=== PATIENT | female | born 1965 | race Caucasian/White ===

== ENCOUNTER 2018-05-21 06:13 | Inpatient (IN) ==
[2018-05-21] MEDS ORDERED: Ringers Solution, Lactated 1,000 ML IVC SCH ×2 (06:30→13:24)
[2018-05-21] MEDS ORDERED: Albuterol 2.5 MG/3 ML NEBULIZER IH ONE (06:30)
[2018-05-21] MEDS ORDERED: CeFAZolin Syr 2,000MG/20 ML 2,000 MG/20 ML SYRINGE IVPB ONE (06:30)
[2018-05-21] MEDS ORDERED: *HR* Succinylcholine 200 MG/10 ML VIAL IVP ONE (07:06)
[2018-05-21] MEDS ORDERED: Lidocaine -MPF 4% 5 ML AMPUL ONE (07:06)
[2018-05-21] MEDS ORDERED: *HR* Propofol 200 MG/20 ML VIAL IVP ONE (07:06)
[2018-05-21] MEDS ORDERED: Neostigmine Methylsulfate 3 MG/3 ML SYRINGE ONE (07:06)
[2018-05-21] MEDS ORDERED: *HR* Midazolam HCl 2 MG/2 ML VIAL ONE (07:06)
[2018-05-21] MEDS ORDERED: Dexamethasone 4 MG/ML VIAL ONE (07:06)
[2018-05-21] MEDS ORDERED: Lidocaine -MPF 2% 2 ML VIAL ONE (07:06)
[2018-05-21] MEDS ORDERED: *HR* Rocuronium Bromide 50 MG/5 ML VIAL ONE (07:06)
[2018-05-21] MEDS ORDERED: *HR* FentaNYL (PF) 100 MCG/2 ML VIAL ONE (07:06)
[2018-05-21] MEDS ORDERED: Ondansetron 4 MG/2 ML VIAL ONE (07:06)
[2018-05-21] MEDS ORDERED: *HR* HYDROcodone/Acet 10/325 mg TABLET PO PRN (07:13)
[2018-05-21] MEDS ORDERED: *HR* Midazolam HCl 2 MG/2 ML VIAL IVP PRN (07:13)
[2018-05-21] MEDS ORDERED: Ondansetron 4 MG/2 ML VIAL IVP ONE (07:13)
[2018-05-21] MEDS ORDERED: Acetaminophen IV 1,000 MG/100 ML INFUS..BTL IVPB ONE (07:13)
[2018-05-21] MEDS ORDERED: *HR* Promethazine 25 MG/ML VIAL IVP PRN (07:13)
--- NOTE | 2018-05-21 07:13 | Anesthesia Evaluation PreOp ---
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, Other (anxiety disorder) Other Medical History: Denies Any Significant HX Anesthesia History: No Prior Anesthetic Complications, Past Anesthesia Alcohol Use: occasionally Drug use: none Medications and Allergies Allergy/AdvReac Type Severity Reaction Status Date / Time No Known Allergies Allergy Verified 05/18/18 14:19 - Meds/Allergy Pre-op Review Medications Reviewed: Yes Allergies Reviewed: Yes Beta Blockers on Current Med List: No Anesthesia Results - Imaging EKG: report reviewed (sinus rhythm) Anesthesia Exam Selected Entries 05/21/18 06:48 Temperature 97.7 F Pulse Rate 83 Respiratory Rate 18 Blood Pressure 140/87 O2 Sat by Pulse Oximetry 96 Weight: 86 kg NPO (# of Hours): over 8 hours - HEENT Pupil (Motor): Pupils equal Teeth: Edentulous Oral Opening: Greater than 3 - Cardiac Rhythm: Regular Murmur: None - Pulmonary Breath Sounds: bilateral Clear Respiratory Effort: Symmetrical Anesthesia Assess/Plan ASA Score: 2 Level of consciousness: Cooperative Anesthetic Plan: General Monitoring Plan: Standard Monitors Recovery Plan: PACU (Discussed GA, risks. Agreed to proceed.)
[2018-05-21] MEDS ORDERED: *HR* Remifentanil 1 MG VIAL IVP ONE (07:17)
[2018-05-21] MEDS ORDERED: Bacitracin 50,000 UNIT, Polymyxin B Sulfate 500,000 UNIT, Sodium Chloride IRRigation 1,... IR ONE (07:45)
--- NOTE | 2018-05-21 07:45 | History & Physical Report ---
Date of Encounter: 05/21/18 Time of Encounter: 07:35 24 Hour HP Update - Instructions Instructions: If the History and Physical is less than 30 days old and was completed prior to A.M. admission and or procedure and has NOT been updated on calendar day of procedure please complete this update prior to performing procedure. - Update Patient reports changes in Medical Condition: No Changes in examination, assessment, or condition: No Preop tests/diagnostics Reviewed: Yes Pre-Op MRSA Screen: Negative Surgery Remains Indicated: Yes Consent for Planned Operative Procedure(s) Verified: Yes - Pre-Operative Checklist Preoperative Checklist Indicated: No Prophylactic Antibiotic Ordered: Yes Home Medications Include Beta Jovana: No Beta Jovana Taken Today (Day of Surgery): No Beta Jovana Taken Yesterday (Day Prior to Surgery): No Is VTE Prophylaxis Indicated?: Yes
[2018-05-21] MEDS ORDERED: EPHEDrine 50 MG/ML VIAL ONE (09:03)
[2018-05-21] MEDS ORDERED: SUGAMMADEX SODIUM 500 MG/5 ML VIAL IV ONE (09:35)
[2018-05-21] MEDS ORDERED: *HR* HYDROMORPHONE 2 MG/ML VIAL ONE ×2 (11:29→11:46)
--- NOTE | 2018-05-21 11:44 | Orthopedic Operative Note ---
Date of procedure: 05/21/18 Pre-op diagnosis: Spondylolisthesis, lumbar stenosis, lumbar radiculopathy Post-op diagnosis: same Operation/Findings: Posterior lumbar interbody fusion L4-L5: The patient successfully underwent general endotracheal anesthesia. The patient was given antibiotics prior to the start of the procedure. Compression boots and stockings were used for deep vein thrombosis prophylaxis. A Neely catheter was placed. Leads for neuro monitoring were placed on the upper and lower extremities. This included the cranium. The neuro monitoring personnel confirmed there were satisfactory readings prior to the start of the procedure. The patient was turned prone on the Ham table. The back was prepped and draped in the usual sterile fashion. An incision was was marked and centered over the involved L4-L5 levels in the mid line. The incision was deepened through the lumbar fascia. Bovie cautery and Pickard elevators were used to reflect the paraspinal musculature at the lateral extent of the transverse processes of the involved L4 and L5 levels. Elsi clamps were placed over the L4 and L5 spinous processes. An intraoperative lateral fluorograph was obtained. A conversation was held between the surgeon and radiologist and both confirmed we had the correct operative levels. We then placed pedicle screws in standard fashion with the aid of fluoroscopy and anatomic landmarks. Briefly a starter awl was used. A gearshift was subsequently used to enter the helicopter pilot hole via a transpedicular route into the vertebral body. The helicopter pilot hole was tapped with an undersized instrument, and subsequently four 6.5 x 40 mm pedicle screws were placed bilaterally at the indicated L4 and L5 levels. The screws were tested with the aid of the neurologic monitoring staff via pedicle screw stimulation. All reading suggested there was no significant cortical wall breech. The screws were also evaluated fluoro- graphically and appeared to be in satisfactory position. We then turned our attention to the decompression portion of the procedure. We removed the supraspinous and interspinous ligaments and subsequently the insertion of the ligamentum flavum on the undersurface of the proximal L4 lamina was dislodged with a curette. We then removed the ligamentum flavum as well as undercut the facets at this L4-L5 level to decompress the lateral recesses. We also performed a L4 laminectomy. After the decompression, which was over and above that which was required to place the interbody graft, the foramen and traversing roots at this L4-L5 level were found to be free and patent. We also took part of the medial facets in order to aid in the d ecompression. We then protected the neural elements including the thecal sac and traversing nerve root on the right with a dural retractor. We made an annulotomy into the L4-L5 disc space and then removed entire disc material using Pituitary instruments. We trialed various size grafts after the endplates were prepared for graft insertion. A 10 x 26 enter body graft fit well within the L4-L5 disc space. We obtained some bone from the right posterior superior iliac spine through us a separate incision and combined with this with the bone which we had saved from the laminectomy portion of the procedure. This autograft bone was first placed in the anterior portion of the L4-L5 disc space and additional bone was placed within the interbody graft spacer. We then placed the interbody graft spacer obliquely across the L4-L5 disc space towards the midline while protecting the neural elements with a root retractor. When the graft was found to be in satisfactory position the pathology technologist was removed. We then copiously irrigated the wound. We then decorticated the L4 and L5 transverse processes as well as the facet joints of the involved L4 and L5 levels to aid in the posterolateral fusion. We placed autograft bone in the lateral gutters over these regions. We then placed rods within the screw heads of the involved L4 and L5 levels and first locked the distal screws and then subsequently locked the proximal screws so as to improve and reduce the spondylolisthesis previously seen. We then closed the wound in layers with 1 Vicryl for the fascia, 2-0 Vicryl. Subcutaneous tissue, and Dermabond was used for skin closure. Sterile dressings were placed over the wound. The patient was turned supine on a hospital bed and extubated. All sponge instruments and needle counts were correct at the end of the procedure. The patient tolerated the procedure well without complications. Anesthesia: GETA Surgeon: Last Prieto Jr Was there an law office assistant present: No Estimated blood loss (cc): 175 Specimen: None Condition: stable Disposition: PACU
[2018-05-21] MEDS: *HR* HYDROmorphone (PF) 1 MG/ML SYRINGE IVP PRN ×2 (12:09→12:22)
--- NOTE | 2018-05-21 12:34 | Anesthesia Evaluation Post Op ---
Date of Encounter: 05/21/18 Time of Encounter: 12:35 - Vital Signs Vital Signs: Selected Entries 05/21/18 12:19 Temperature 97.2 F L Pulse Rate 80 Respiratory Rate 18 Blood Pressure 138/93 O2 Sat by Pulse Oximetry 99 - Lungs Lungs: Clear Ascult./Percussion - Airway Airway: Non-obstructed - Cardiovascular Regular Rate - Mental Status Mental Status: Alert & Oriented, Answers Appropriately - Discharge PostOp Status: Transfer Patient to floor
[2018-05-21] MEDS ORDERED: Naloxone 0.4 MG/ML INJ IVP PRN (13:24)
[2018-05-21] MEDS ORDERED: Ondansetron 4 MG/2 ML VIAL IVP PRN (13:24)
[2018-05-21] MEDS: *HR* OxyCODONE Immed Rel 5 MG TABLET PO PRN ×2 (16:05→20:06)
[2018-05-21] MEDS: *HR* HYDROcodone/Acet 5/325 mg TABLET PO PRN (23:15)
[2018-05-22] MEDS: *HR* OxyCODONE Immed Rel 5 MG TABLET PO PRN ×6 (00:50→22:45)
[2018-05-22] MEDS: tiZANidine 4 MG TABLET PO PRN ×2 (02:29→09:04)
[2018-05-22] MEDS: *HR* HYDROcodone/Acet 5/325 mg TABLET PO PRN (06:48)
[2018-05-22] MEDS ORDERED: tiZANidine 4 MG TABLET PO PRN (08:39)
--- NOTE | 2018-05-22 08:39 | Orthopedics Progress Note ---
Date of Encounter: 05/22/18 Time of Encounter: 08:39 - Assessment and Plan (1) Spondylisthesis Current Visit: Yes Status: Chronic Qualifiers: Spinal region: unspecified Qualified Code(s): M43.10 - Spondylolisthesis, site unspecified (2) Lumbar stenosis Current Visit: Yes Status: Acute Qualifiers: Neurogenic claudication status: unspecified Qualified Code(s): M48.061 - Spinal stenosis, lumbar region without neurogenic claudication (3) Lumbar radiculopathy Current Visit: Yes Status: Chronic (4) Status post lumbar spinal fusion Current Visit: Yes Status: Acute Subjective Principal diagnosis: s/p plif Interval history: Date of procedure: 05/21/18 Pre-op diagnosis: Spondylolisthesis, lumbar stenosis, lumbar radiculopathy Post-op diagnosis: same Operation/Findings: Posterior lumbar interbody fusion L4-L5 The patient is c/o pain not controlled well at this point. Afebrile vital signs are stable. Dressing is clean dry and intact. Neurovascularly intact with regard to bilateral lower extremities. Fires all upper and lower extremity motor groups. Assessment: pain control - medications changed to provide improved relief Plan: mobilize ,continue analgesics, discharge planning - reviewed with Dr. Prieto - if continued improvement in pain control - will plan for discharge tomorrow, 05/23. Objective Vital signs: Vital Signs Temp Pulse Resp BP Pulse Ox 05/22/18 06:40 98.3 F 95 18 107/68 97 05/22/18 05:04 97.5 F L 76 15 107/68 97 05/21/18 23:56 97.8 F 79 16 157/81 98 05/21/18 21:33 98.0 F 86 16 126/65 98 05/21/18 15:54 97.8 F 92 106/69 98 05/21/18 14:30 98.0 F 73 101/65 92 05/21/18 13:35 97.4 F L 79 16 107/75 94 05/21/18 12:57 97.5 F L 68 12 102/71 98 05/21/18 12:39 78 16 134/74 96 05/21/18 12:29 74 18 135/79 99 05/21/18 12:19 97.2 F L 80 18 138/93 99 02/04/19 12:09 80 16 132/83 99 05/21/18 11:59 86 16 139/89 100 05/21/18 11:49 97.5 F L 86 16 151/113 99 Intake and Output 05/21/18 05/22/18 05/22/18 23:59 07:59 15:59 Intake Total 540 / 540 Output Total 400 / 400 1800 / 1800 Balance 140 / 140 -1800 / -1800 Intake: IV Fluids 100 / 100 Ancef 2,000 MG In 0.9 % Sodium 100 / 100 Chloride 100 ML @ 200 mls/hr IVPB Q8HR [facility] Rx#:[id number] Oral 440 / 440 Output: Catheter 400 / 400 1800 / 1800 Other: Meal Dinner Percent of Meal Consumed 100% Weight 89.3 kg Patient Weight 05/22/18 23:59 Weight 89.3 kg - VTE Documentation of Mechanical Device: Intermittent pneumatic compression device Consult Discharge Plan - Plan Referrals: Hawk Leahy DO [Primary Care Provider] -
[2018-05-22] MEDS ORDERED: *HR* OxyCODONE Immed Rel 5 MG TABLET PO PRN (08:41)
[2018-05-22] MEDS: diazePAM 2 MG TABLET PO SCH ×3 (10:04→20:09)
[2018-05-22] MEDS: Acetaminophen 325 MG TABLET PO PRN ×2 (13:34→20:08)
[2018-05-23] MEDS: tiZANidine 4 MG TABLET PO PRN (00:17)
[2018-05-23] MEDS: *HR* OxyCODONE Immed Rel 5 MG TABLET PO PRN ×3 (02:53→13:34)
[2018-05-23] MEDS: Acetaminophen 325 MG TABLET PO PRN (07:27)
[2018-05-23] MEDS: diazePAM 2 MG TABLET PO SCH ×2 (07:27→15:17)
--- NOTE | 2018-05-23 13:15 | Orthopedics Progress Note ---
Date of Encounter: 05/23/18 Time of Encounter: 08:45 - Assessment and Plan (1) Spondylisthesis Current Visit: Yes Status: Chronic Qualifiers: Spinal region: unspecified Qualified Code(s): M43.10 - Spondylolisthesis, site unspecified (2) Lumbar stenosis Current Visit: Yes Status: Acute Qualifiers: Neurogenic claudication status: unspecified Qualified Code(s): M48.061 - Spinal stenosis, lumbar region without neurogenic claudication (3) Lumbar radiculopathy Current Visit: Yes Status: Chronic (4) Status post lumbar spinal fusion Current Visit: Yes Status: Acute Subjective Principal diagnosis: s/p plif Interval history: Date of procedure: 05/21/18 Pre-op diagnosis: Spondylolisthesis, lumbar stenosis, lumbar radiculopathy Post-op diagnosis: same Operation/Findings: Posterior lumbar interbody fusion L4-L5 The patient has well controlled pain. Ambulating with therapy Afebrile vital signs are stable. Dressing is clean dry and intact. Neurovascularly intact with regard to bilateral lower extremities. Fires all upper and lower extremity motor groups. Assessment: pain control - continue medications as scheduled which have improved pain Plan: mobilize ,continue analgesics, discharge planning - reviewed with Dr. Prieto - if continued improvement in pain control - will plan for discharge today 05/23.- awaiting xray results. Objective Vital signs: Vital Signs Temp Pulse Resp BP Pulse Ox 05/23/18 09:56 98.5 F 87 16 104/68 98 05/23/18 08:27 84 16 107/63 96 05/23/18 06:37 98.3 F 87 16 104/56 97 05/23/18 04:30 98.1 F 84 18 100/59 95 05/23/18 00:51 98.2 F 77 16 92/57 96 05/22/18 17:40 97.4 F L 85 20 125/75 98 05/22/18 15:04 98.1 F 78 18 109/64 97 Intake and Output 05/22/18 05/23/18 05/23/18 23:59 07:59 15:59 Intake Total 530 / 530 50 / 50 Balance 530 / 530 50 / 50 Intake: Oral 530 / 530 50 / 50 Other: Meal Dinner Percent of Meal Consumed 100% # Voids 1 1 Weight 88.9 kg Patient Weight 05/23/18 23:59 Weight 88.9 kg - VTE Documentation of Mechanical Device: Intermittent pneumatic compression device Consult Discharge Plan - Plan Referrals: Hawk Leahy DO [Primary Care Provider] -
--- NOTE | 2018-05-23 17:46 | Anesthesia Evaluation PreOp ---
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 Anesthesia History: No Prior Anesthetic Complications : No Test: Negative (05/18/2018) Alcohol Use: occasionally Drug use: none Medications and Allergies Gabapentin [Neurontin] 300 mg PO TID 05/21/18 [History] Tizanidine HCl 4 mg PO BID PRN 05/21/18 [History] Allergy/AdvReac Type Severity Reaction Status Date / Time No Known Allergies Allergy Verified 05/21/18 07:20 - Meds/Allergy Pre-op Review Medications Reviewed: Yes Allergies Reviewed: Yes Beta Blockers on Current Med List: No Anesthesia Results - Labs Laboratory Tests 05/18/18 05/18/18 05/18/18 14:07 14:07 14:07 WBC 9.7 Hgb 14.5 Hct 45.0 H Plt Count 251 INR 1.0 Sodium 135 L Potassium 4.1 Chloride 104 Carbon Dioxide 27 BUN 15 Creatinine 0.68 Serum , Qual 05/18/18 14:07 WBC Hgb Hct Plt Count INR Sodium Potassium Chloride Carbon Dioxide BUN Creatinine Serum , Qual Negative Anesthesia Exam Vital Signs/O2 Sat, Most Current Temp Pulse Resp BP Pulse Ox 98.5 F 87 16 104/68 98 05/23/18 09:56 05/23/18 09:56 05/23/18 09:56 05/23/18 09:56 05/23/18 09:56 NPO (# of Hours): > 8 hrs Pain Scale: 0 Pain Scale Used: Numeric (1 - 10) - HEENT Pupil (Motor): Pupils equal, EOMI Mallampati: III Teeth: Edentulous Oral Opening: Greater than 3 - EDUCATIONAL PROGRAM ASSISTANT LOC: Oriented EDUCATIONAL PROGRAM ASSISTANT Motor: Normal RUE, Normal LUE, Normal RLE, Normal LLE, Normal Face EDUCATIONAL PROGRAM ASSISTANT Sensory: Normal: RUE, LUE, RLE, LLE, Face - Cardiac Rhythm: Regular Murmur: None JVD: No Carotid Bruit: No - Pulmonary Breath Sounds: bilateral Clear Respiratory Effort: Symmetrical Anesthesia Assess/Plan ASA Score: 2 Level of consciousness: Cooperative Anesthetic Plan: General Autologous Blood: Yes Monitoring Plan: Standard Monitors Recovery Plan: PACU
--- NOTE | 2018-05-23 20:25 | Spine Progress Note ---
Date of Encounter: 05/23/18 Time of Encounter: 20:24 Subjective Principal diagnosis: Spondylolisthesis, lumbar stenosis, lumbar radiculopathy Interval history: Patient doing reasonably well. Afebrile vital signs stable. Incision is clean dry and intact. She is neurovascularly intact with regard to bilateral lower extremities. Radiographic evaluation shows laterally displaced pedicle screw at L4. Had a long discussion with the patient and she understands that her best chance for a solid arthrodesis is removal, replacement of hardware. Risk benefits possible complications and alternatives were discussed and the patient would like to proceed. We will plan on surgery today. Objective Vital signs: Vital Signs Temp Pulse Resp BP Pulse Ox 05/23/18 09:56 98.5 F 87 16 104/68 98 05/23/18 08:27 84 16 107/63 96 05/23/18 06:37 98.3 F 87 16 104/56 97 05/23/18 04:30 98.1 F 84 18 100/59 95 05/23/18 00:51 98.2 F 77 16 92/57 96 Intake and Output 05/23/18 05/23/18 05/23/18 07:59 15:59 23:59 Intake Total 50 / 50 Balance 50 / 50 Intake: Oral 50 / 50 Other: # Voids 1 Weight 88.9 kg Patient Weight 05/23/18 23:59 Weight 88.9 kg Consult Discharge Plan - Plan Referrals: Hawk Leahy DO [Primary Care Provider] -
[2018-05-23] MEDS ORDERED: Bacitracin 50,000 UNIT, Polymyxin B Sulfate 500,000 UNIT, Sodium Chloride IRRigation 1,... IR ONE (20:45)
[2018-05-23] MEDS ORDERED: *HR* FentaNYL (PF) 100 MCG/2 ML VIAL ONE ×2 (21:01→21:57)
[2018-05-23] MEDS ORDERED: *HR* Propofol 200 MG/20 ML VIAL IVP ONE (21:02)
[2018-05-23] MEDS ORDERED: *HR* Rocuronium Bromide 50 MG/5 ML VIAL ONE (21:04)
[2018-05-23] MEDS ORDERED: *HR* HYDROMORPHONE 2 MG/ML VIAL ONE (22:02)
[2018-05-23] MEDS ORDERED: *HR* Labetalol 20 MG/4 ML SYRINGE IVP PRN (22:58)
[2018-05-23] MEDS ORDERED: *HR* OxyCODONE Immed Rel 5 MG TABLET PO PRN (22:58)
[2018-05-23] MEDS ORDERED: Acetaminophen IV 1,000 MG/100 ML INFUS..BTL IVPB ONE (22:58)
[2018-05-23] MEDS ORDERED: *HR* Promethazine 25 MG/ML VIAL IVP PRN (22:58)
[2018-05-23] MEDS ORDERED: Ketorolac 30 MG/ML VIAL IVP ONE (22:58)
[2018-05-23] MEDS ORDERED: Ondansetron 4 MG/2 ML VIAL IVP ONE (22:58)
[2018-05-23] MEDS ORDERED: *HR* HYDROmorphone (PF) 1 MG/ML SYRINGE IVP PRN (22:58)
--- NOTE | 2018-05-23 23:33 | Orthopedic Operative Note ---
Date of procedure: 05/23/18 Pre-op diagnosis: Failed hardware Post-op diagnosis: same Operation/Findings: Remove and replace hardware lumbar spine: The patient was brought to the operative theater where she underwent general endotracheal anesthesia. She was given antibiotics prior to the start of the procedure. Compression boots and stockings were used for deep vein thrombosis prophylaxis. The patient was placed prone on a Ham table. The back was prepped and draped in the usual sterile fashion. An incision was marked and centered over the the previous incision at L4-L5. Bovie cautery and Pickard elevators were used to reflect the paraspinal musculature to the lateral extent of the L4-5 facet joints bilaterally and the hardware at L4 and L5 was clearly visualized. The hardware was exposed. We removed the gabriel and pedicle screw on the left at L4. We removed the gabriel and screw construct at L4-L5 on the left. We used an awl and medialized the entry point and trajectory of the gearshift. We then tapped the commercial airline pilot hole which was transpedicular with a 5.5 mm tap. We then placed a 6.5 x 40 mm pedicle screw at L4. We utilized the previous pedicle screw at L5 and replaced the gabriel and locked and tightened the construct in standard fashion. On the contralateral right side we removed the pedicle screws and rods at L4 and L5 due to concerns of loosening. We copiously irrigated the wound and then closed the wound in layers with 1 Vicryl for the fascia, 2-0 Vicryl for the subcutaneous tissue, and Dermabond was used for skin closure. Sterile dressings were placed over the wound, the patient was turned supine in a hospital bed, and was extubated in the operative theater. All sponge needles and instrument counts were correct at the end of the procedure. The patient tolerated the procedure well without complications. Anesthesia: GETA Surgeon: Last Prieto Jr Was there an sociology research assistant present: No Estimated blood loss (cc): 30 Specimen: None Condition: stable Disposition: PACU
--- NOTE | 2018-05-24 00:48 | Anesthesia Evaluation Post Op ---
Date of Encounter: 05/24/18 Time of Encounter: 00:20 - Vital Signs Vital Signs: Vital Signs/O2 Sat, Most Current Temp Pulse Resp BP Pulse Ox 98.4 F 95 16 152/91 96 05/24/18 00:43 05/24/18 00:43 05/24/18 00:43 05/24/18 00:43 05/24/18 00:43 - Lungs Lungs: Clear Ascult./Percussion - Airway Airway: Non-obstructed - Cardiovascular Regular Rate - Mental Status Mental Status: Alert & Oriented, Answers Appropriately - Pain Pain Scale: 0 Pain Scale used: Numeric (1 - 10) - Nausea Vomiting Nausea Vomiting: Not Present - Hydration Hydration: Ice chips, Has not voided - Discharge PostOp Status: Transfer Patient to floor
[2018-05-24] MEDS ORDERED: Ketorolac 30 MG/ML VIAL IVP ONE (00:49)
[2018-05-24] MEDS ORDERED: Ondansetron 4 MG/2 ML VIAL IVP ONE (00:49)
[2018-05-24] MEDS ORDERED: *HR* Labetalol 20 MG/4 ML SYRINGE IVP PRN (00:49)
[2018-05-24] MEDS ORDERED: *HR* OxyCODONE Immed Rel 5 MG TABLET PO PRN ×3 (00:49)
[2018-05-24] MEDS ORDERED: Ringers Solution, Lactated 1,000 ML IVC SCH ×2 (00:49)
[2018-05-24] MEDS ORDERED: Ondansetron 4 MG/2 ML VIAL IVP PRN ×2 (00:49)
[2018-05-24] MEDS ORDERED: Acetaminophen 325 MG TABLET PO PRN (00:49)
[2018-05-24] MEDS ORDERED: Acetaminophen IV 1,000 MG/100 ML INFUS..BTL IVPB ONE (00:49)
[2018-05-24] MEDS ORDERED: *HR* HYDROmorphone (PF) 1 MG/ML SYRINGE IVP PRN (00:49)
[2018-05-24] MEDS ORDERED: Bacitracin 50,000 UNIT, Polymyxin B Sulfate 500,000 UNIT, Sodium Chloride IRRigation 1,... IR ONE (00:49)
[2018-05-24] MEDS ORDERED: *HR* Promethazine 25 MG/ML VIAL IVP PRN (00:49)
[2018-05-24] MEDS ORDERED: Naloxone 0.4 MG/ML INJ IVP PRN ×2 (00:49)
[2018-05-24] MEDS: *HR* OxyCODONE Immed Rel 5 MG TABLET PO PRN ×3 (03:08→15:57)
[2018-05-24] MEDS: diazePAM 2 MG TABLET PO SCH ×3 (09:07→21:27)
[2018-05-24] MEDS: tiZANidine 4 MG TABLET PO PRN ×2 (12:53→18:23)
[2018-05-24] MEDS: *HR* HYDROcodone/Acet 5/325 mg TABLET PO PRN (21:27)
[2018-05-25] MEDS: *HR* OxyCODONE Immed Rel 5 MG TABLET PO PRN ×4 (02:02→18:24)
--- NOTE | 2018-05-25 08:11 | Spine Progress Note ---
Date of Encounter: 05/24/18 Time of Encounter: 14:20 Subjective Principal diagnosis: Spondylolisthesis, lumbar stenosis, lumbar radiculopathy Interval history: Patient doing reasonably well. Afebrile vital signs stable. Incision is clean dry and intact. She is neurovascularly intact with regard to bilateral lower extremities. Impression stable. Plan discharge tomorrow, analgesics, rehabilitation. Objective Vital signs: Vital Signs Temp Pulse Resp BP Pulse Ox 05/25/18 00:57 98.6 F 75 16 107/69 100 05/24/18 21:30 106/65 05/24/18 21:27 96 05/24/18 20:39 98.0 F 72 16 90/53 96 05/24/18 10:00 97.9 F 87 16 127/86 95 Intake and Output 05/24/18 05/25/18 05/25/18 23:59 07:59 15:59 Output Total 400 / 400 400 / 400 Balance -400 / -400 -400 / -400 Output: Urine 400 / 400 400 / 400 Other: Weight 88.7 kg Patient Weight 05/25/18 23:59 Weight 88.7 kg Consult Discharge Plan - Plan Referrals: Hawk Leahy DO [Primary Care Provider] -
[2018-05-25] MEDS: diazePAM 2 MG TABLET PO SCH ×2 (09:10→16:08)
--- NOTE | 2018-05-25 15:35 | Discharge Summary ---
- NOTES TO OUTPATIENT PROVIDER Notes to Outpatient Provider: Follow-up in 2 weeks in [facility] Orders not resulted at time of discharge: Pending orders 05/21/18 XR fluoroscopy <1 hr [XR] Routine 05/23/18 22:00 XR lumbar spine 1V [XR] Routine Date of Encounter: 05/25/18 Time of Encounter: 15:35 - Hospital Course Hospital course: Ms. Baker is a 52 year old female who underwent posterior lumbar interbody fus ion L4-L5 secondary to spondylolisthesis and lumbar stenosis. She had postoperative course complicated by failed, malpositioned hardware. This required removal, replacement of hardware lumbar spine 2 days after the index procedure. She had an uneventful course postoperatively immobilized satisfactory. Radiographic studies were satisfactory upon discharge. She was scheduled for 2 weeks follow-up and was discharged in good condition. - Time Spent with Patient Total time spent providing and/or coordinating discharge services: - Discharge Medications Prescriptions: OxyCODONE Immed Rel [Roxicodone 5 MG] 5 mg PO Q4HR PRN 7 Days #30 tablet PRN Reason: Moderate Pain Home Medications: Gabapentin [Neurontin] 300 mg PO TID 05/21/18 [History] Tizanidine HCl 4 mg PO BID PRN 05/21/18 [History] OxyCODONE Immed Rel [Roxicodone 5 MG] 5 mg PO Q4HR PRN 7 Days #30 tablet 05/25/18 [Rx] Allergies/Adverse Reactions: Allergy/AdvReac Type Severity Reaction Status Date / Time No Known Allergies Allergy Verified 05/21/18 07:20 Date of admission: 05/21/18 13:56 Primary care physician: Hawk Leahy DO Consults: 05/21/18 13:24 Consult to Occupational Therapy [CONS] Routine Comment: Evaluate, develop and implement POC Reason for Consult: Postoperative rehabilitation Does patient have active BEDREST order?: No Is patient medically & hemodynamically stable?: Yes Patient assessed for mobility or mobilized this visit?: No Consult to Physical Therapy [CONS] Routine Comment: Evaluate, develop and implement POC Reason for Consult: Postoperative rehabilitation Does patient have active BEDREST order?: No Is patient medically & hemodynamically stable?: Yes Patient assessed for mobility or mobilized this visit?: No Consult to Spine Navigator [CONS] [CONS] Routine 05/21/18 16:16 Consult to Pastoral Services [CONS] Routine Comment: 05/24/18 00:49 Consult to Nurse Navigator [CONS] Routine Comment: spine navigator Consult to Occupational Therapy [CONS] Routine Comment: Evaluate, develop and implement POC Reason for Consult: Postoperative rehabilitation Does patient have active BEDREST order?: No Is patient medically & hemodynamically stable?: Yes Patient assessed for mobility or mobilized this visit?: No Consult to Physical Therapy [CONS] Routine Comment: Evaluate, develop and implement POC Reason for Consult: Postoperative rehabilitation Does patient have active BEDREST order?: No Is patient medically & hemodynamically stable?: Yes Patient assessed for mobility or mobilized this visit?: No - VTE Documentation of Mechanical Device: Intermittent pneumatic compression device - Impressions ITS Impressions Lumbar Spine X-Ray 05/21/18 00:00 IMPRESSION: Recent postsurgical change of posterior laminectomy and fusion at L4-5. Single lateral image demonstrates at least 1 of the L4 pedicle screws to extend above the level of the superior endplate. Precise location is difficult to determine. D/ / Sagar Dougherty MD / Sagar Dougherty MD Interpreting Provider: Sagar Dougherty MD Lumbar Spine X-Ray 05/23/18 00:01 IMPRESSION: 1. Status post L4 laminectomy with bilateral L4-5 spinal fixation; note that neither of the L4 level screws projects at the pedicle. The right screw is possibly outside the confines of the vertebral body altogether. CT correlation may be indicated for screw placement confirmation. 2. Mild degenerative changes lumbar spine. 3. Chronic 60% compression central superior endplate L1. 4. No acute lumbar fracture or listhesis. 5. Mild, bilaterally symmetrical SI joint osteoarthritis is noted. RECOMMENDATION: CT lumbar spine D/ / Donnie Jo / Donnie Jo Interpreting Provider: Donnie Jo Fluoroscopy 05/23/18 22:00 IMPRESSION: Intraoperative fluoroscopic imaging as detailed above. Please see operative report for further details. D/ / Dm Geronimo / Dm Geronimo Interpreting Provider: Dm Geronimo Lumbar Spine X-Ray 05/24/18 11:38 IMPRESSION: Interval postsurgical changes as described above. No immediate complication. Stable compression deformity of L1. D/ / 05/24/2018 12:51:34 Patricia Webber MD / micki Interpreting Provider: Patricia Webber MD - Patient Status Disposition: Home, Self-Care Condition: Good Functional capacity at discharge: uses cane/walker Overall status at discharge: patient is progressing back to baseline - Discharge Instructions Follow Up With: Hawk Leahy DO [Primary Care Provider] - - Diet and Activity Diet: advance to your usual diet
[2018-05-25] MEDS: *HR* HYDROcodone/Acet 5/325 mg TABLET PO PRN (16:08)
[2018-05-25 16:11] VITALS: BP 121/75
== END 2018-05-25 19:07 | disposition home or self-care (01) | DRG 304 ==
LOC: SAMDAY 06:13 → 3NENU 13:56
PROVIDERS: ADMIT Orthopaedic Surgery Orthopaedic Surgery of the Spine; ATTEND Orthopaedic Surgery Orthopaedic Surgery of the Spine